=== PATIENT | female | born 2000 | race Caucasian/White ===

== ENCOUNTER 2023-11-16 10:15 | Inpatient (IN) | payer OTHER ==
[2023-11-16] MEDS: OXYTOCIN 20 UNITS in 0.9% NS 20 UNIT/1,000 ML INFUS.BAG IV SCH (12:10)
[2023-11-16] MEDS ORDERED: BENZOCAINE 20% 57 GM BOTTLE TP PRN (12:24)
[2023-11-16] MEDS ORDERED: BENZOCAINE 28 GM HEMORRHOIDAL OINTMENT TP PRN (12:24)
[2023-11-16] MEDS ORDERED: oxyCODONE HCL 5 MG TABLET PO PRN (12:24)
[2023-11-16] MEDS ORDERED: BISACODYL 10 MG SUPP.RECT RC PRN (12:24)
[2023-11-16] MEDS ORDERED: METHYLERGONOVINE MALEATE 0.2 MG/1 ML AMP IM PRN (12:24)
[2023-11-16] MEDS ORDERED: WITCH HAZEL 50% (TUCKS) 40 PAD/JAR PAD TP PRN (12:24)
[2023-11-16] MEDS ORDERED: ACETAMINOPHEN 325 MG TABLET (FP) PO PRN (12:24)
[2023-11-16 12:55] VITALS: BMI 27.9
[2023-11-16 13:09] LABS: BASO % 0.1 % (0-2.0); EOS % 0.2 % (0-4.5); HEMATOCRIT 36.4 % (32.4-45.2); HEMOGLOBIN 12.2 GM/dL (10.7-15.3); LYMPH % 7.5 % (8-40); MCH 26.2 pg (25.7-33.7); MCHC 33.6 g/dl (32.0-36.0); MEAN CELL VOLUME 77.9 fl (80-96); MEAN PLT VOLUME 10.4 fl (7.5-11.1); MONO % 4.5 % (3.8-10.2); NEUT % 87.7 % (42.8-82.8); PLATELET COUNT 157 10^3/uL (134-434); RBC 4.67 M/mm3 (3.60-5.2); RDW 15.9 % (11.6-15.6); WHITE BLOOD COUNT 12.6 K/mm3 (4.0-10.0)
[2023-11-16 13:38] LABS: INR 0.97 (0.83-1.09)
[2023-11-16 14:20] LABS: HIV INTERPRETATION NEGATIVE (NEGATIVE)
[2023-11-16] MEDS: IBUPROFEN 600 MG TABLET (FP) PO PRN (14:56)
[2023-11-16 18:15] LABS: METHADONE, UR NEGATIVE (NEGATIVE); OPIATES, URI NEGATIVE (NEGATIVE); PHENCYCLIDINE,URINE NEGATIVE (NEGATIVE); URINE BARBITURATES NEGATIVE (NEGATIVE); URINE BENZODIAZEPINES NEGATIVE (NEGATIVE)
[2023-11-16 18:16] LABS: URINE AMPHETAMINES NEGATIVE (NEGATIVE)
[2023-11-16 19:09] LABS: COCAINE, UR NEGATIVE (NEGATIVE)
[2023-11-16] MEDS: DEXTROSE 5%-LACTATED RINGERS 1,000 ML IV SCH (20:58)
[2023-11-17 06:11] LABS: BASO % 0.3 % (0-2.0); EOS % 1.6 % (0-4.5); HEMATOCRIT 34.4 % (32.4-45.2); HEMOGLOBIN 11.3 GM/dL (10.7-15.3); LYMPH % 19.6 % (8-40); MCH 25.9 pg (25.7-33.7); MCHC 32.8 g/dl (32.0-36.0); MEAN PLT VOLUME 9.7 fl (7.5-11.1); MONO % 6.7 % (3.8-10.2); NEUT % 71.8 % (42.8-82.8); PLATELET COUNT 127 10^3/uL (134-434); RBC 4.36 M/mm3 (3.60-5.2); RDW 15.3 % (11.6-15.6); WHITE BLOOD COUNT 11.5 K/mm3 (4.0-10.0)
[2023-11-17] MEDS: DIPHTH,PERTUSS(ACELL),TET 0.5 ML DISP.SYRIN IM ONE (10:59)
[2023-11-17] MEDS: SENNOSIDES/DOCUSATE COMBO (SENNA PLUS) TABLET (UD) PO PRN (20:47)
[2023-11-18 11:55] VITALS: BP 113/70; PULSE 102; RESP 16; TEMP 97.7
== END 2023-11-18 16:50 | disposition home or self-care (01) | DRG 560 ==
LOC: JER 10:15 → JLDR 11:45 → J3W 14:40
PROVIDERS: ADMIT Student in an Organized Health Care Education/Training Program; ATTEND Student in an Organized Health Care Education/Training Program
PROC: 10E0XZZ Delivery of Products of Conception, External Approach (ICD-10-PCS; principal; 2023-11-16)
PROC: 10E0XZZ Delivery of Products of Conception, External Approach (ICD-10-PCS; 2023-11-16)
PROC: 0HQ9XZZ Repair Perineum Skin, External Approach (ICD-10-PCS; 2023-11-16)
DX: O70.0 First degree perineal laceration during delivery (principal); O69.81X0 Labor and delivery complicated by cord around neck, without compression, not applicable or unspecified; Z3A.37 37 weeks gestation of pregnancy; Z37.0 Single live birth
CPT/HCPCS: 36415; 59409; 80307; 85025; 85610; 85730; 86780; 86803; 86850; 86900; 86901; 87389; 90715; 99285-25